=== PATIENT | female | born 1960 | race Caucasian/White ===

== ENCOUNTER 2021-03-08 15:14 | Outpatient (CLI) | payer MEDICAID, SELFPAY ==
--- NOTE | 2021-03-08 | US_ITS ---
WS: [id number] ULTRASOUND RENAL TECHNIQUE: Ultrasound examination of both kidneys. CLINICAL INFORMATION: HEMATURIA COMPARISON: None. FINDINGS: Technically difficult examination. RIGHT: Right kidney is normal in size and appearance. Echogenicity: Normal. Cortical thickness: 1.8 cm; Normal. Hydronephrosis: None. Perinephric fluid: None. Right kidney measures: 11.1 cm x 5.6 cm x 5.4 cm. LEFT: Left kidney is normal in size and appearance. Echogenicity: Normal. Cortical thickness: cm; Normal. Hydronephrosis: None. Perinephric fluid: None. Left kidney measures: 11.5 cm x 4.9 cm x 5.4 cm. Normal visualized aorta. Normal bladder. US/US renal BI* [id number] IMPRESSION: Normal renal ultrasound
[2021-03-15 15:54] LABS: Stone Source KIDNEY STONE
== END 2021-03-08 15:15 | disposition home or self-care (01) ==
LOC: RAD 15:19
PROVIDERS: PCP Registered Nurse; Visit Provider Registered Nurse
DX: R31.9 Hematuria, unspecified (principal); N20.0 Calculus of kidney
CPT/HCPCS: 76770; 82365; 88300

== ENCOUNTER 2022-04-07 13:22 | Emergency (ER) | payer MEDICAID, SELFPAY ==
--- NOTE | 2022-04-07 13:24 | ECG_ITS ---
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 Measurements Intervals [place] Rate: 67 P: 44 [place]: 167 QRS: 14 QRSD: 90 T: 67 QT: 375 QTc: 396 Interpretive Statements SINUS RHYTHM LOW QRS VOLTAGE IN PRECORDIAL LEADS [QRS DEFLECTION < 1.0 mV IN CHEST LEADS] No previous ECG available for comparison Electronically Signed On 04-07-2022 17:24:01 CDT by Javier Buenrostro M.D. [email or web address]/[id number] f
--- NOTE | 2022-04-07 13:24 | XR_ITS ---
WS: [id number] Exam: XR chest 1V portable [id number] Date/Time of Exam: 04/07/2022 1:24 PM Reason For Exam: cp Comparison 10/02/2010. The lungs are fully expanded and clear. Normal cardiomediastinal silhouette. A cardiac pacer superimp oses the left chest. Regional bony elements are intact. XR/XR chest 1V portable [id number] IMPRESSION: 1. No acute cardiopulmonary finding.
[2022-04-07 13:32] VITALS: BP 155/92; PULSE 72; RESP 20; TEMP 36.3; O2SAT 99; BMI 43.9
--- NOTE | 2022-04-07 13:51 | ED_ITS ---
HPI - Chest Pain General: Chief Complaint: Chest Pain Stated Complaint: chest pain/sweating/diarrhea/vomiting Time Seen by Provider: 04/07/22 13:37 Source: patient Mode of arrival: ambulatory Limitations: no limitations History of Present Illness: 62-year-old female states she been having left- sided chest pain since this morning. States the pain is sharp in nature seems to come and go states is worse with movement of her left arm and with palpation improved with rest. She denies any shortness of breath states she has had some diarrhea and vomiting. She denies any fevers denies any cough. Associated symptoms: Deny abdominal pain, dyspnea, fever(s), nausea or vomiting Review of Systems Const: Denies: fever(s), chills, body aches or change in appetite Eyes: Denies: blurry vision or eye discomfort ENMT: Denies: throat pain or dental pain Card: Reports: chest pain Resp: Denies: dyspnea GI: Denies: abdominal pain, nausea, vomiting or diarrhea : Denies: dysuria Musc: Denies: neck pain or back pain Skin/Breast: Denies: rash Neuro: Denies: headache(s) Psych: Denies: depression Elvis/Lymph: Denies: easy bruising All/Imm: Denies: urticaria PFSH ED PFSH: Medical History (Updated 04/07/22 @ 16:49 by Rosalva Chow MD) High cholesterol Social History (Updated 04/07/22 @ 13:53 by Rosalva Chow MD) Substance/Drug Use: never Physical Exam Const: COMMON NORMALS: no acute distress, patient oriented x3 and healthy appearing HENMT: COMMON NORMALS: normocephalic and atraumatic HEAD & SCALP: normocephalic and atraumatic Eye: COMMON NORMALS: Equal, round and reactive pupils present and EOMs intact bilaterally PUPIL: Yes Equal, round and reactive pupils present Neck/C-Spine: COMMON NORMALS: full ROM and supple Chest: COMMONS NORMALS: normal inspection of the chest OTHER: point tender to left chest reporduces pain Resp: COMMON NORMALS: normal respiratory effort, No retractions, No use of accessory muscles and clear to auscultation bilaterally AUSCULTATION: clear to auscultation bilaterally Cardio: COMMON NORMALS: regular rate, regular rhythm and No murmurs present (Cardio) RATE: regular rate RHYTHM: regular rhythm GI: COMMON NORMALS: Normal to inspection, nondistended, normoactive bowel sounds present, Soft to palpation, non-tender and no masses PALPATION: Yes Soft to palpation Extremity: COMMON NORMALS: normal to inspection and full ROM Neuro: COMMON NORMALS: patient oriented x3, moves all extremities and no focal motor deficits Psych: COMMON NORMALS: mental status grossly normal, Normal thought process present and cooperative THOUGHT PROCESS: Normal thought process present Skin: COMMON NORMALS: no rashes or lesions noted and no wounds GENERAL SKIN EXAM: no rashes or lesions noted Course Vital Signs: Vital signs: Vital Signs Temperature 97.3 F L 04/07/22 13:32 Pulse Rate 73 04/07/22 15:29 Respiratory Rate 18 04/07/22 15:29 Blood Pressure 133/91 04/07/22 15:29 Pulse Oximetry 95 04/07/22 15:29 MDM - Chest Pain Medical Decision Making Patient presents for chest wall pain likely she is point tender in her left chest reproduces her pain troponins here are negative x-ray is normal EKGs are normal she is stable for discharge follow-up PCP return if worsening. Lab Data : 04/07/22 13:48 04/07/22 13:48 Radiology Impressions Chest X-Ray 04/07/22 13:24 IMPRESSION: 1. No acute cardiopulmonary finding. Laboratory Results WBC 8.1 10^3/uL (4.0-10.0) 04/07/22 13:48 RBC 5.06 10^6/uL (4.1-5.3) 04/07/22 13:48 Hgb 15.1 g/dL (11.5-15.3) 04/07/22 13:48 Hct 44.6 % (37.0-47.0) 04/07/22 13:48 MCV 88.1 fl (81-99) 04/07/22 13:48 MCH 29.8 pg (28.0-34.0) 04/07/22 13:48 MCHC 33.9 g/dL (30.0-36.0) 04/07/22 13:48 RDW 11.7 % (12.1-15.1) L 04/07/22 13:48 Plt Count 340 10^3/cmm (130-400) 04/07/22 13:48 MPV 9.2 fL (7.4-10.4) 04/07/22 13:48 Neut % (Auto) 57.6 % 04/07/22 13:48 Lymph % (Auto) 29.6 % 04/07/22 13:48 Bowie % (Auto) 9.7 % 04/07/22 13:48 Eos % (Auto) 2.2 % 04/07/22 13:48 Baso % (Auto) 0.7 % 04/07/22 13:48 Neut # (Auto) 4.64 10^3/uL (1.8-7.7) 04/07/22 13:48 Lymph # (Auto) 2.4 10^3/uL (0.8-4.8) 04/07/22 13:48 Bowie # (Auto) 0.8 10^3/uL (0.2-0.9) 04/07/22 13:48 Eos # (Auto) 0.2 10^3/uL (0.0-0.8) 04/07/22 13:48 Baso # (Auto) 0.1 10^3/uL (0.0-0.1) 04/07/22 13:48 Nucleated RBC % (auto) 0 % 04/07/22 13:48 Nucleated RBCs # 0.0 /100WBC 04/07/22 13:48 Sodium 138 mmol/L (136-145) 04/07/22 13:48 Potassium 3.8 mmol/L (3.5-5.1) 04/07/22 13:48 Chloride 101 mmol/L (98-107) 04/07/22 13:48 Carbon Dioxide 23 mmol/L (22-29) 04/07/22 13:48 Anion Gap 17.8 (5-19) 04/07/22 13:48 BUN 15 mg/dL (8-23) 04/07/22 13:48 Creatinine 0.7 mg/dL (0.5-0.9) 04/07/22 13:48 GFR Calculation 85.1 mL/min (90-130) L 04/07/22 13:48 Glucose 97 mg/dL (65-115) 04/07/22 13:48 Calculated Osmolality 287 mOsm/kg (285-295) 04/07/22 13:48 Calcium 10.0 mg/dL (8.5-10.5) 04/07/22 13:48 Total Bilirubin 0.5 mg/dL (0.15-1.2) 04/07/22 13:48 AST 36 U/L (0-32) H 04/07/22 13:48 ALT 53 U/L (0-33) H 04/07/22 13:48 Alkaline Phosphatase 88 IU/L (35-105) 04/07/22 13:48 Troponin T Baseline 7 ng/L (0-10) 04/07/22 13:48 Troponin T 120 Minute 6.72 ng/L (0-10) 04/07/22 16:05 Total Protein 7.5 g/dL (6.6-8.7) 04/07/22 13:48 Albumin 5.2 g/dL (3.5-5.2) 04/07/22 13:48 Globulin 2.3 g/dL (1.3-4.6) 04/07/22 13:48 EKG Data EKG 1: I personally reviewed and interpreted this EKG as follows: EKG interpretation date: 04/07/22 EKG interpretation time: 13:30 Interpretation: paced hr [address] or t wave abnormalities qrs 90 qtc 390 EKG 2: I personally reviewed and interpreted this EKG as follows: EKG interpretation date: 04/07/22 EKG interpretation time: 15:22 Interpretation: atrial paced hr 100 qtc 475 Discharge Plan Discharge Patient Disposition: Home Clinical Impression: Chest wall pain Prescriptions: New hydrocodone-acetaminophen 5-325 mg tablet 1 tab PO Q6H PRN (Reason: pain) Qty: 14 0RF No Action multivitamin Tablet 1 tab PO DAILY 0RF labetalol 200 mg tablet 200 mg PO BID 0RF Sanc-Ipkt-Tddwh (PABA) 3-133 mg-mcg Capsule 1 cap PO DAILY 0RF Vitamin D3 50 mcg (2,000 unit) Capsule 50 mcg PO BID 0RF [place]roven 155 mg Capsule 1 cap PO BEDTIME 0RF Repatha SureClick 140 mg/mL pen injector 140 mg SUBCUT Q14D 0RF Discharge Orders: Discharge ED (Routine); Ordered 04/07/22 Ordered By: Rosalva Chow Referrals: Trish Prince FNP [Primary Care Provider] - 1-3 days Discharge Diet: Advance as tolerated Discharge Activity: Resume usual activity Patient Instructions: Chest Wall Pain (ED) Coding Level of Care Code ED Physician Allergist Immunologist for Chg Fwd Exam Comprehensive
[2022-04-07 13:57] LABS: Basophils # 0.1 10^3/uL (0.0-0.1); Basophils % 0.7 %; Eosinophils # 0.2 10^3/uL (0.0-0.8); Eosinophils % 2.2 %; Hematocrit 44.6 % (37.0-47.0); Hemoglobin 15.1 g/dL (11.5-15.3); Lymphocytes # 2.4 10^3/uL (0.8-4.8); Lymphocytes % 29.6 %; Mean Corpuscular HGB Conc 33.9 g/dL (30.0-36.0); Mean Corpuscular Hemoglobin 29.8 pg (28.0-34.0); Mean Corpuscular Volume 88.1 fl (81-99); Mean Platelet Volume 9.2 fL (7.4-10.4); Monocytes # 0.8 10^3/uL (0.2-0.9); Monocytes % 9.7 %; Neutrophils # 4.64 10^3/uL (1.8-7.7); Neutrophils % 57.6 %; Nucleated Red Blood Cells % 0 %; Platelet Count 340 10^3/cmm (130-400); Red Blood Count 5.06 10^6/uL (4.1-5.3); Red Cell Distribution Width 11.7 % (12.1-15.1); White Blood Count 8.1 10^3/uL (4.0-10.0)
[2022-04-07] MEDS: ondansetron 2 mg/ML SDV 2 mL 4 MG IVP (14:10)
[2022-04-07 14:11] VITALS: RESP 14; O2SAT 97
[2022-04-07] MEDS: HYDROmorphone 1 mg/mL INJ 1 mL IVP (14:11)
[2022-04-07 14:20] LABS: Alanine Aminotransferase 53 U/L (0-33); Albumin Level 5.2 g/dL (3.5-5.2); Alkaline Phosphatase 88 IU/L (35-105); Aspartate Amino Transferase 36 U/L (0-32); Blood Urea Nitrogen 15 mg/dL (8-23); Carbon Dioxide 23 mmol/L (22-29); Chloride 101 mmol/L (98-107); Globulin 2.3 g/dL (1.3-4.6); Glomerular Filtration Rate 85.1 mL/min (90-130); Glucose 97 mg/dL (65-115); Osmolality Calculated 287 mOsm/kg (285-295); Sodium 138 mmol/L (136-145); Total Bilirubin 0.5 mg/dL (0.15-1.2); Total Protein 7.5 g/dL (6.6-8.7)
[2022-04-07 14:21] LABS: Troponin(5th) Baseline 7 ng/L (0-10)
[2022-04-07 14:35] LABS: Anion Gap 17.8 (5-19); Potassium 3.8 mmol/L (3.5-5.1)
--- NOTE | 2022-04-07 15:24 | ECG_ITS ---
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 Measurements Intervals [place] Rate: 100 P: 246 [place]: 174 QRS: -33 QRSD: 139 T: 85 QT: 418 QTc: 539 Interpretive Statements ELECTRONIC ATRIAL PACEMAKER ELECTRONIC VENTRICULAR PACEMAKER Compared to ECG 04/07/2022 13:30:19 Sinus rhythm no longer present Electronically Signed On 04-07-2022 17:27:07 CDT by Javier Buenrostro M.D. [id number]
[2022-04-07 15:29] VITALS: BP 133/91; PULSE 73; RESP 18; O2SAT 95
[2022-04-07 16:40] LABS: Troponin 5 2HR 6.72 ng/L (0-10)
[2022-04-07] MEDS: HYDROcodone-acetaminophen 5-325 mg Tablet 1 TAB PO (16:50)
[2022-04-07 17:31] VITALS: BP 162/91; PULSE 100; RESP 21; O2SAT 98
[2022-04-07 18:00] LABS: Troponin 5 2HR Delta -0.28 ABS# (0-10)
== END 2022-04-07 17:20 | disposition home or self-care (01) ==
PROVIDERS: Emergency Provider Emergency Medicine; PCP Registered Nurse
DX: R07.89 Other chest pain (principal)
CPT/HCPCS: 71045; 80053; 84484; 85025; 93005; 96374; 96375; 99285; J1170; J2405